=== PATIENT | female | born 1990 | race African-American/Black ===

== ENCOUNTER 2016-07-04 17:39 | Emergency (ER) | payer OTHER ==
[~2016-07-04 17:39] MED LIST: IBUP80TA PO; PERCOCET PO
[2016-07-04] MEDS ORDERED: TETRACAINE 0.5% OPHTH SOLN 4ML As Ordered ONE (18:14)
--- NOTE | 2016-07-04 18:54 | EDDOCDS ---
Nurse's Notes [facility] Name: Sanjana Hernadez Age: 26 yrs Sex: Female : 1990 Arrival Date: 07/04/2016 Time: 17:39 Bed I10 / 23 Private MD: NIKOLE Diagnosis: Injury of conjunctiva and corneal abrasion without foreign body, left eye Presentation: 07/04 18:06 Presenting complaint: Patient states: Was playing with kids and noticed that she had an lf1 injury to her left eye. States she rinsed it out but is unable to see out of it and has increased pain. Pain is currently 10/10. Adult Sepsis Screening: The patient does not have new or worsening altered mentation. Patient's respiratory rate is less than 22. Systolic blood pressure is greater than 100. Patient has a qSOFA score of 0- Negative Sepsis Screen. Suicide/Homicide risk assessment- the patient denies having any suicidal and/or homicidal ideations and does not present with any other emotional, behavioral or mental health complaints. Status: Patient is not a nursing surgical services director or dependent. Transition of care: patient was not received from another setting of care. 18:06 Acuity: LISA Level 4 lf1 18:06 Method Of Arrival: Walkin/Carried/Asstd lf1 Triage Assessment: 18:08 General: Appears obese, uncomfortable, Behavior is cooperative. Pain: Location: left lf1 eye Pain currently is 10 out of 10 on a pain scale. HIV screening NA for this visit Offered previously. Neurological: Level of Consciousness is awake, alert. EENT: Reports pain in left eye. Respiratory: Respiratory effort is even, unlabored. GI: Denies nausea, vomiting. Derm: Skin is normal. 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 none - PMHx: Anxiety; Bipolar disorder; Depression; - PSHx: ; Carpal Tunnel Repair- Right; - Social history: Smoking status: Patient states former smoker of tobacco. No barriers to communication noted, The patient speaks fluent Kazakh, Speaks appropriately for age, Preferred Language: Kazakh. - Family history: Not pertinent. - : The pt / caregiver states he / she is not on anticoagulants. Home medication list is obtained from the patient. - Exposure Risk Screening:: None identified. Screenin:51 Screening information is obtained from the patient. Fall risk: No risks identified. srm Assistance ADL's: requires no assistance with activities of daily living. Abuse/DV Screen: The patient / caregiver reports he/she is: not in a situation that causes fear, pain or injury. Nutritional screening: No deficits noted. Advance Directives: Currently, there is no health care proxy. There is no active DNR order. There is no living will. home support is adequate. Assessment: 18:51 General: Appears in no apparent distress, Behavior is appropriate for age, cooperative. srm Neurological: No deficits noted. EENT: Sclera/Cornea are reddened in outer aspect of conjuctiva of left eye, iris of left eye and inner aspect of conjunctiva of left eye. Respiratory: No deficits noted. GI: No deficits noted. Vital Signs: 17:41 BP 132 / 75; Pulse 86; Resp 18 S; Temp 98.6(O); Pulse Ox 100% on R/A; Weight 92.99 kg dd6 (R); Height 5 ft. 5 in. (165.10 cm) (R); 17:41 Body Mass Index 34.11 (92.99 kg, 165.10 cm) dd6 Vitals: 17:41 Log In Time: July 04, 2016 at 17:39. dd6 Visual Acuity: 18:24 Left Eye Visual acuity 20/200, ; Right Eye Visual acuity 20/30, ; Both Eyes Visual srm acuity 20/25; Without Lenses; ED Course: 17:40 Patient visited by Reji Azul PCA. dd6 17:40 NONE is Private Physician. dd6 17:40 Patient moved to Waiting dd6 17:41 Patient moved to Pre RCE dd6 18:08 Triage Initiated lf1 18:10 Bharati Naylor MD is Attending Physician. sd1 18:12 Patient visited by Bharati Naylor MD. sd1 18:12 Patient moved to I10 / 23 kr3 18:20 Giovany Barksdale is Referral Physician. sd1 18:25 Patient visited by Aileen Calzada RN. srm 18:51 The patient / caregiver is instructed regarding the plan of care and ED course. Patient srm has correct armband on for positive identification. 18:51 No IV's were initiated during this patient's visit. No procedures done that require srm assistance. Order Results: There are currently no results for this order. Outcome: 18:20 Discharge ordered by Provider. sd1 18:51 Discharge Assessment: patient administered narcotics - no. The following High Risk srm Discharge criteria are identified: None. Discharged to home ambulatory. Condition: good Condition: stable. No special radiology studies were completed. Property :Personal belongings accompany Pt. 18:53 Patient left the ED. srm Signatures: Bharati Naylor MD MD sd1 Aileen Calzada, RN RN Natalee YenRN RN kr3 Patricia Manley RN RN lf1 Reji Azul, KIMBERLY CALL CENTER RECRUITER dd6 HUEYD
--- NOTE | 2016-07-04 18:54 | EDDOCDS ---
Physician Documentation [facility] Name: Sanjana Hernadez Age: 26 yrs Sex: Female : 1990 Arrival Date: 07/04/2016 Time: 17:39 Bed I10 / 23 Private MD: NONE Disposition: 07/04/16 18:20 Discharged to Home/Self Care. Impression: Injury of conjunctiva and corneal abrasion without foreign body, left eye. - Condition is Stable. - Discharge Instructions: Corneal Abrasion, Corneal Abrasion, [id number]. - Prescriptions for Naprosyn 500 mg Oral Tablet - take 1 tablet by ORAL route 2 times per day take with food; 30 tablet. Percocet 5- 325 mg Oral Tablet - take 1 tablet by ORAL route every 6 hours As needed MDD: 4 tabs; 8 tablet. Erythromycin 5 mg/gram (0.5 %) Ophthalmic Ointment - apply 1 ribbon by OPHTHALMIC route every 8 hours; 1 tube. - Medication Reconciliation, Local Pharmacy Hours form. - Follow up: Giovany Barksdale; When: Call to arrange an appointment. - Problem is new. - Symptoms have improved. Historical: - Allergies: No known drug Allergies; - Home Meds: 1. none - PMHx: Anxiety; Bipolar disorder; Depression; - PSHx: ; Carpal Tunnel Repair- Right; - Social history: Smoking status: Patient states former smoker of tobacco. No barriers to communication noted, The patient speaks fluent Central African, Speaks appropriately for age, Preferred Language: Central African. - Family history: Not pertinent. - : The pt / caregiver states he / she is not on anticoagulants. Home medication list is obtained from the patient. - Exposure Risk Screening:: None identified. 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 5 in. (165.10 cm) (R); 17:41 Body Mass Index 34.11 (92.99 kg, 165.10 cm) dd6 Visual Acuity: 18:24 Left Eye Visual acuity 20/200, ; Right Eye Visual acuity 20/30, ; Both Eyes Visual srm acuity 20/25; Without Lenses; MDM: 18:13 Visual Acuity ordered. sd1 18:51 Financial registration complete. Signatures: Bharati Naylor MD MD sd1 Aileen Calzada, RN RN srm Aga Rivera, Reg Reg Patricia ManleyRN RN lf1 MTDD
--- NOTE | 2016-07-06 19:53 | EDDOCDS ---
Physician Documentation [facility] Name: Sanjana Hernadez Age: 26 yrs Sex: Female : 1990 Arrival Date: 07/04/2016 Time: 17:39 Bed I10 / 23 Private MD: NONE Disposition: 07/04/16 18:20 Discharged to Home/Self Care. Impression: Injury of conjunctiva and corneal abrasion without foreign body, left eye. - Condition is Stable. - Discharge Instructions: Corneal Abrasion, Corneal Abrasion, [id number]. - Prescriptions for Naprosyn 500 mg Oral Tablet - take 1 tablet by ORAL route 2 times per day take with food; 30 tablet. Percocet 5- 325 mg Oral Tablet - take 1 tablet by ORAL route every 6 hours As needed MDD: 4 tabs; 8 tablet. Erythromycin 5 mg/gram (0.5 %) Ophthalmic Ointment - apply 1 ribbon by OPHTHALMIC route every 8 hours; 1 tube. - Medication Reconciliation, Local Pharmacy Hours form. - Follow up: Giovany Barksdale; When: Call to arrange an appointment. - Problem is new. - Symptoms have improved. Historical: - Allergies: No known drug Allergies; - Home Meds: 1. none - PMHx: Anxiety; Bipolar disorder; Depression; - PSHx: ; Carpal Tunnel Repair- Right; - Social history: Smoking status: Patient states former smoker of tobacco. No barriers to communication noted, The patient speaks fluent Estonian, Speaks appropriately for age, Preferred Language: Estonian. - Family history: Not pertinent. - : The pt / caregiver states he / she is not on anticoagulants. Home medication list is obtained from the patient. - Exposure Risk Screening:: None identified. 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 5 in. (165.10 cm) (R); 17:41 Body Mass Index 34.11 (92.99 kg, 165.10 cm) dd6 Visual Acuity: 18:24 Left Eye Visual acuity 20/200, ; Right Eye Visual acuity 20/30, ; Both Eyes Visual srm acuity 20/25; Without Lenses; MDM: 18:13 Visual Acuity ordered. sd1 18:51 Financial registration complete. gb 18:59 [facility] Payment Agreement was scanned into [employer] and attached to record. zo 07/05 09:20 T-Sheet-- Draft Copy was scanned into [employer] and attached to record. gb Signatures: Bharati Naylor MD MD sd1 Aileen Calzada, RN RN [facility] Aga Rivera, Reg Reg gb Dangelo Lieberman Lisa,RN RN lf1 The chart was reviewed and I authenticate all verbal orders and agree with the evaluation and treatment provided.Attachments: 07/04 18:59 [facility] Payment Agreement zo 07/05 09:20 T-Sheet-- Draft Copy gb Chart Complete MTDD
--- NOTE | 2016-07-06 19:53 | EDDOCDS ---
Physician Documentation [facility] Name: Sanjana Hernadez Age: 26 yrs Sex: Female : 1990 Arrival Date: 07/04/2016 Time: 17:39 Bed I10 / 23 Private MD: NONE Disposition: 07/04/16 18:20 Discharged to Home/Self Care. Impression: Injury of conjunctiva and corneal abrasion without foreign body, left eye. - Condition is Stable. - Discharge Instructions: Corneal Abrasion, Corneal Abrasion, [id number]. - Prescriptions for Naprosyn 500 mg Oral Tablet - take 1 tablet by ORAL route 2 times per day take with food; 30 tablet. Percocet 5- 325 mg Oral Tablet - take 1 tablet by ORAL route every 6 hours As needed MDD: 4 tabs; 8 tablet. Erythromycin 5 mg/gram (0.5 %) Ophthalmic Ointment - apply 1 ribbon by OPHTHALMIC route every 8 hours; 1 tube. - Medication Reconciliation, Local Pharmacy Hours form. - Follow up: Giovany Barksdale; When: Call to arrange an appointment. - Problem is new. - Symptoms have improved. Historical: - Allergies: No known drug Allergies; - Home Meds: 1. none - PMHx: Anxiety; Bipolar disorder; Depression; - PSHx: ; Carpal Tunnel Repair- Right; - Social history: Smoking status: Patient states former smoker of tobacco. No barriers to communication noted, The patient speaks fluent North Korean, Speaks appropriately for age, Preferred Language: North Korean. - Family history: Not pertinent. - : The pt / caregiver states he / she is not on anticoagulants. Home medication list is obtained from the patient. - Exposure Risk Screening:: None identified. 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 5 in. (165.10 cm) (R); 17:41 Body Mass Index 34.11 (92.99 kg, 165.10 cm) dd6 Visual Acuity: 18:24 Left Eye Visual acuity 20/200, ; Right Eye Visual acuity 20/30, ; Both Eyes Visual srm acuity 20/25; Without Lenses; MDM: 18:13 Visual Acuity ordered. sd1 18:51 Financial registration complete. gb 18:59 [facility] Payment Agreement was scanned into [employer] and attached to record. zo 07/05 09:20 T-Sheet-- Draft Copy was scanned into [employer] and attached to record. gb Signatures: Bharati Naylor MD MD sd1 Aileen Calzada, RN RN [facility] Aga Rivera, Reg Reg gb Dangelo Lieberman Lisa,RN RN lf1 The chart was reviewed and I authenticate all verbal orders and agree with the evaluation and treatment provided.Attachments: 07/04 18:59 [facility] Payment Agreement zo 07/05 09:20 T-Sheet-- Draft Copy gb Chart Complete MTDD
--- NOTE | 2016-07-06 19:53 | EDDOCDS ---
Nurse's Notes [facility] Name: Sanjana Hernadez Age: 26 yrs Sex: Female : 1990 Arrival Date: 07/04/2016 Time: 17:39 Bed I10 / 23 Private MD: NIKOLE Diagnosis: Injury of conjunctiva and corneal abrasion without foreign body, left eye Presentation: 07/04 18:06 Presenting complaint: Patient states: Was playing with kids and noticed that she had an lf1 injury to her left eye. States she rinsed it out but is unable to see out of it and has increased pain. Pain is currently 10/10. Adult Sepsis Screening: The patient does not have new or worsening altered mentation. Patient's respiratory rate is less than 22. Systolic blood pressure is greater than 100. Patient has a qSOFA score of 0- Negative Sepsis Screen. Suicide/Homicide risk assessment- the patient denies having any suicidal and/or homicidal ideations and does not present with any other emotional, behavioral or mental health complaints. 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 Transition of care: patient was not received from another setting of care. 18:06 Acuity: LISA Level 4 lf1 18:06 Method Of Arrival: Walkin/Carried/Asstd lf1 Triage Assessment: 18:08 General: Appears obese, uncomfortable, Behavior is cooperative. Pain: Location: left lf1 eye Pain currently is 10 out of 10 on a pain scale. HIV screening NA for this visit Offered previously. Neurological: Level of Consciousness is awake, alert. EENT: Reports pain in left eye. Respiratory: Respiratory effort is even, unlabored. GI: Denies nausea, vomiting. Derm: Skin is normal. 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 none - PMHx: Anxiety; Bipolar disorder; Depression; - PSHx: ; Carpal Tunnel Repair- Right; - Social history: Smoking status: Patient states former smoker of tobacco. No barriers to communication noted, The patient speaks fluent Chilean, Speaks appropriately for age, Preferred Language: Chilean. - Family history: Not pertinent. - : The pt / caregiver states he / she is not on anticoagulants. Home medication list is obtained from the patient. - Exposure Risk Screening:: None identified. Screenin:51 Screening information is obtained from the patient. Fall risk: No risks identified. srm Assistance ADL's: requires no assistance with activities of daily living. Abuse/DV Screen: The patient / caregiver reports he/she is: not in a situation that causes fear, pain or injury. Nutritional screening: No deficits noted. Advance Directives: Currently, there is no health care proxy. There is no active DNR order. There is no living will. home support is adequate. Assessment: 18:51 General: Appears in no apparent distress, Behavior is appropriate for age, cooperative. srm Neurological: No deficits noted. EENT: Sclera/Cornea are reddened in outer aspect of conjuctiva of left eye, iris of left eye and inner aspect of conjunctiva of left eye. Respiratory: No deficits noted. GI: No deficits noted. Vital Signs: 17:41 BP 132 / 75; Pulse 86; Resp 18 S; Temp 98.6(O); Pulse Ox 100% on R/A; Weight 92.99 kg dd6 (R); Height 5 ft. 5 in. (165.10 cm) (R); 17:41 Body Mass Index 34.11 (92.99 kg, 165.10 cm) dd6 Vitals: 17:41 Log In Time: July 04, 2016 at 17:39. dd6 Visual Acuity: 18:24 Left Eye Visual acuity 20/200, ; Right Eye Visual acuity 20/30, ; Both Eyes Visual srm acuity 20/25; Without Lenses; ED Course: 17:40 Patient visited by Reji Azul PCA. dd6 17:40 NONE is Private Physician. dd6 17:40 Patient moved to Waiting dd6 17:41 Patient moved to Pre RCE dd6 18:08 Triage Initiated lf1 18:10 Bharati Naylor MD is Attending Physician. sd1 18:12 Patient visited by Bharati Naylor MD. sd1 18:12 Patient moved to I10 / 23 kr3 18:20 Giovany Barksdale is Referral Physician. sd1 18:25 Patient visited by Aileen Calzada RN. srm 18:51 The patient / caregiver is instructed regarding the plan of care and ED course. Patient srm has correct armband on for positive identification. 18:51 No IV's were initiated during this patient's visit. No procedures done that require srm assistance. 18:59 [facility] Payment Agreement was scanned into [employer] and attached to record. zo 07/05 09:20 T-Sheet-- Draft Copy was scanned into [employer] and attached to record. gb Order Results: There are currently no results for this order. Outcome: 07/04 18:20 Discharge ordered by Provider. sd1 18:51 Discharge Assessment: patient administered narcotics - no. The following High Risk srm Discharge criteria are identified: None. Discharged to home ambulatory. Condition: good Condition: stable. No special radiology studies were completed. Property :Personal belongings accompany Pt. 18:53 Patient left the ED. srm Signatures: Bharati Naylor MD MD sd1 Aileen Calzada, RN RN srm Aga Rivera, Reg Reg Natalee Benavides,RN RN kr3 Dangelo Lieberman Lisa, RN RN lf1 Reji Azul, KIMBERLY WAX PATTERN COATER dd6 Chart Complete ALISSA
== END 2016-07-04 18:53 | disposition home or self-care (01) ==
LOC: M ED 17:39
DX: S05.02XA Injury of conjunctiva and corneal abrasion without foreign body, left eye, initial encounter (principal); W50.0XXA Accidental hit or strike by another person, initial encounter; Y92.099 Unspecified place in other non-institutional residence as the place of occurrence of the external cause; Y93.89 Activity, other specified; Y99.8 Other external cause status; F41.9 Anxiety disorder, unspecified; F31.9 Bipolar disorder, unspecified; Z87.891 Personal history of nicotine dependence

== ENCOUNTER → 2016-07-12 | Outpatient (REF) | payer OTHER | END | disposition home or self-care (01) | LOC: M LAB REF 13:16 | PROVIDERS: ATTEND Nurse Practitioner Family | DX: R33.9 Retention of urine, unspecified (principal) ==

== ENCOUNTER 2016-08-25 11:50 | Emergency (ER) | payer OTHER ==
[~2016-08-25] VITALS: Ht 165.1 cm; Wt 89.8 kg
--- NOTE | 2016-08-25 13:37 | REP ---
RIGHT HAND SERIES, COMPLETE: 08/25/2016 CLINICAL HISTORY: Trauma. No prior study. FINDINGS: Four views are provided. Distal radius and ulna intact. Carpal bones and their joint spaces are preserved. There is no fracture, subluxation or focal lesion. The metacarpals and phalanges are unremarkable. I see no radiopaque foreign body. No erosion or avulsion. IMPRESSION: There is no fracture, avulsion, subluxation or focal bone lesion about the hand. No radiopaque foreign body. Signed by Tommy Oconnor MD 08/25/2016 05:07 P
[2016-08-25] MEDS ORDERED: IBUP600T26 PO (14:56)
[2016-08-25 15:09] VITALS: BP 145/75
== END 2016-08-25 15:12 | disposition home or self-care (01) ==
LOC: M ED 13:23
DX: S60.221A Contusion of right hand, initial encounter (principal); X58.XXXA Exposure to other specified factors, initial encounter; Y92.099 Unspecified place in other non-institutional residence as the place of occurrence of the external cause; Y93.89 Activity, other specified; Y99.9 Unspecified external cause status

== ENCOUNTER 2018-01-21 11:05 | Emergency (ER) | payer MEDICAID, BC, OTHER | END 2018-01-21 11:40 | disposition home or self-care (01) | LOC: M ED 11:05 | DX: L30.9 Dermatitis, unspecified (principal); Z91.040 Latex allergy status | CPT/HCPCS: 99282 ==

== ENCOUNTER 2018-04-20 21:48 | Emergency (ER) | payer OTHER, MEDICAID ==
[2018-04-20] MEDS: IBUPROFEN 800 MG TAB PO (22:22)
[2018-04-20] MEDS: BACTRIM 160MG/800MG DS TAB PO (22:22)
== END 2018-04-20 22:45 | disposition home or self-care (01) ==
LOC: M ED 21:48
DX: L02.412 Cutaneous abscess of left axilla (principal); L02.411 Cutaneous abscess of right axilla
CPT/HCPCS: 87186

== ENCOUNTER 2018-04-22 17:16 | Emergency (ER) | payer OTHER ==
[2018-04-22] MEDS: BACTRIM 160MG/800MG DS TAB PO (19:19)
== END 2018-04-22 19:28 | disposition home or self-care (01) ==
LOC: M ED 17:16
DX: L02.413 Cutaneous abscess of right upper limb (principal); Z72.0 Tobacco use; Z79.899 Other long term (current) drug therapy; Z91.040 Latex allergy status
CPT/HCPCS: 99283

== ENCOUNTER → 2018-06-05 | Outpatient (CLI) | payer MEDICAID ==
[~2018-06-05] MED LIST changes: +BACT800T5 PO; +CLAR1TAB2 PO; +HYDR-3363; +IBUP-1022 PO; +TRAZ-160; +TRIA1CR80 TOP
== END ==
LOC: M OUTALCOH 08:36
PROVIDERS: ATTEND Psychiatry & Neurology Psychiatry
DX: Z13.89 Encounter for screening for other disorder (principal); F12.20 Cannabis dependence, uncomplicated

== ENCOUNTER 2018-06-09 08:15 | Emergency (ER) | payer MEDICAID, OTHER ==
[~2018-06-09] VITALS: Ht 165.1 cm; Wt 85.9 kg
[2018-06-09] MEDS ORDERED: KETOROLAC 60 MG/2 ML VIAL (J1885) IM ONE (09:00)
[2018-06-09 09:25] VITALS: BP 133/90
--- NOTE | 2018-06-09 17:27 | ECGEPIP ---
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
== END 2018-06-09 09:29 | disposition home or self-care (01) ==
LOC: M ED 08:15
DX: M94.0 Chondrocostal junction syndrome [Tietze] (principal); F12.10 Cannabis abuse, uncomplicated; F32.9 Major depressive disorder, single episode, unspecified; F17.200 Nicotine dependence, unspecified, uncomplicated; Z91.040 Latex allergy status; Z79.899 Other long term (current) drug therapy
CPT/HCPCS: 93005; 96372; 99284; J1885

== ENCOUNTER 2018-07-09 16:00 | Outpatient (RCR) | payer MEDICAID | END 2018-07-11 | LOC: M OUTALCOH 16:00 | PROVIDERS: ATTEND Psychiatry & Neurology Psychiatry | DX: F12.20 Cannabis dependence, uncomplicated (principal); Z72.0 Tobacco use ==

== ENCOUNTER → 2018-07-15 | Outpatient (REF) | payer OTHER ==
[2018-07-15 16:26] LABS: HEMATOCRIT 36.6 % (36.0-47.0); HEMOGLOBIN 11.6 g/dl (12.0-15.5); MEAN CORPUSCULAR HEMOGLOBIN 30.1 pg (27.0-33.0); MEAN CORPUSCULAR HGB CONC 31.7 g/dl (32.0-36.5); MEAN CORPUSCULAR VOLUME 94.8 fl (80.0-96.0); PLATELET COUNT, AUTOMATED 421 10^3/uL (150-450); RED BLOOD COUNT 3.86 10^6/uL (4.00-5.40); WHITE BLOOD COUNT 9.1 10^3/uL (4.0-10.0)
[2018-07-15 16:59] LABS: ALBUMIN 3.4 GM/DL (3.2-5.2); ALT/SGPT 24 U/L (12-78); BILIRUBIN,TOTAL 0.2 MG/DL (0.2-1.0); BLOOD UREA NITROGEN 11 MG/DL (7-18); CALCIUM LEVEL 8.5 MG/DL (8.5-10.1); CARBON DIOXIDE LEVEL 31 MEQ/L (21-32); CHLORIDE LEVEL 104 MEQ/L (98-107); CREATININE FOR GFR 0.62 MG/DL (0.55-1.30); GLOMERULAR FILTRATION RATE > 60.0 (>60); GLUCOSE, FASTING 80 MG/DL (70-100); POTASSIUM SERUM 4.3 MEQ/L (3.5-5.1); SODIUM LEVEL 142 MEQ/L (136-145); TOTAL PROTEIN 7.1 GM/DL (6.4-8.2)
== END ==
LOC: M SFHCPLAZ 14:28
PROVIDERS: ATTEND Family Medicine
DX: F31.81 Bipolar II disorder (principal)

== ENCOUNTER 2018-08-06 16:00 | Outpatient (RCR) | payer MEDICAID | END 2018-08-08 | LOC: M OUTALCOH 16:00 | PROVIDERS: ATTEND Psychiatry & Neurology Psychiatry | DX: F12.20 Cannabis dependence, uncomplicated (principal); Z72.0 Tobacco use ==

== ENCOUNTER 2018-08-30 14:00 | Outpatient (RCR) | payer MEDICAID | END 2018-09-08 | LOC: M OUTALCOH 14:00 | PROVIDERS: ATTEND Psychiatry & Neurology Psychiatry | DX: F12.20 Cannabis dependence, uncomplicated (principal); Z72.0 Tobacco use ==

== ENCOUNTER → 2018-11-01 | Outpatient (CLI) | payer OTHER ==
[~2018-11-01] MED LIST changes: +OXYC1TAB23 PO; -PERCOCET PO
--- NOTE | 2018-11-01 09:15 | REP ---
Clinical: Right upper quadrant pain. Technique: Real time romero scale ultrasound examination using curved array transducer. Findings: Liver and visualized pancreas are normal in contour, size, and echogenicity without focal hepatic or pancreatic lesions identified. Pancreas is incompletely evaluated due to interposed bowel gas. The gallbladder is normal and without gallstones, wall thickening, or pericholecystic fluid. No biliary ductal dilatation appreciated and the common bile duct measures 4.0 mm diameter. The right kidney is normal in reniform shape and measures 12.5 x 4.6 x 4.6 cm. No ascites in the visualized right upper quadrant. Impression: Normal right upper quadrant ultrasound examination. Electronically Signed by Rod Matson MD 11/01/2018 09:07 A
== END ==
LOC: M RAD 07:31
PROVIDERS: ATTEND Family Medicine
DX: R10.11 Right upper quadrant pain (principal)

== ENCOUNTER → 2019-01-24 | Outpatient (CLI) | payer MEDICAID ==
[~2019-01-24] MED LIST changes: -TRAZ-160; +TRAZ-252
== END ==
LOC: M OUTALCOH 09:34
PROVIDERS: ATTEND Psychiatry & Neurology Psychiatry
DX: F12.20 Cannabis dependence, uncomplicated (principal); F10.20 Alcohol dependence, uncomplicated

== ENCOUNTER 2019-07-02 15:56 | Outpatient (RCR) | payer MEDICAID, SELFPAY | END 2019-07-11 | LOC: M OUTALCOH 15:56 | PROVIDERS: ATTEND Psychiatry & Neurology Addiction Medicine | DX: F12.20 Cannabis dependence, uncomplicated (principal); F10.20 Alcohol dependence, uncomplicated; Z72.0 Tobacco use ==

== ENCOUNTER 2019-07-17 03:28 | Emergency (ER) | payer MEDICAID, OTHER ==
[~2019-07-17] VITALS: Ht 162.6 cm; Wt 90.0 kg
[2019-07-17] MEDS ORDERED: AMOX875T (03:38)
[2019-07-17] MEDS ORDERED: EFFE150C2 (03:38)
[2019-07-17] MEDS ORDERED: LATU20TA PO (03:38)
[2019-07-17 04:36] LABS: INFLUENZA A AMPLIFICATION NEGATIVE (NEGATIVE); INFLUENZA B AMPLIFICATION POSITIVE (NEGATIVE)
[2019-07-17 04:52] VITALS: BP 122/68
[2019-07-17] MEDS ORDERED: BENZ200C70 PO (06:26)
--- NOTE | 2019-07-17 13:22 | REP ---
Clinical: Cough and fever . Comparison: 08/09/2011 . Technique: PA and lateral. Findings: The mediastinum and cardiac silhouette are normal. The lung bray are clear and without acute consolidation, effusion, or pneumothorax. The skeletal structures are intact and normal. Impression: 1. No acute cardiopulmonary process. Electronically Signed by Rod Matson MD 07/17/2019 01:14 P
== END 2019-07-17 06:36 | disposition home or self-care (01) ==
LOC: M ED 03:28
DX: J10.89 Influenza due to other identified influenza virus with other manifestations (principal); F33.9 Major depressive disorder, recurrent, unspecified; Z79.899 Other long term (current) drug therapy; Z91.040 Latex allergy status; F17.210 Nicotine dependence, cigarettes, uncomplicated

== ENCOUNTER → 2019-09-24 | Outpatient (CLI) | payer OTHER ==
[~2019-09-24] MED LIST changes: +AMOX875T; +BENZ200C70 PO; +EFFE150C2; +LATU20TA PO
--- NOTE | 2019-09-25 03:20 | REP ---
Clinical: Right knee pain Technique: AP, lateral, bilateral oblique and sunrise views. Findings: Examination is relatively age-appropriate. The tibiofemoral joint space appears normal. Griffith view suggests increase sclerosis along the posterior patellar margin with minimal decreased lateral patellofemoral joint space. No acute fracture dislocation. No obvious effusion. Impression: Mild degenerative changes involving the patellofemoral joint space cannot be excluded. Electronically Signed by Rod Matson MD 09/25/2019 03:12 A
== END ==
LOC: M WUC 11:16
PROVIDERS: ATTEND Physician Assistant
DX: M25.561 Pain in right knee (principal)

== ENCOUNTER → 2022-10-02 | Outpatient (CLI) | payer OTHER ==
[2022-10-02 11:28] LABS: BASO % 0.3 % (0.0-1.0); EOS # 0.1 10^3/uL (0.0-0.5); EOS % 0.6 % (0.0-3.0); HEMATOCRIT 37.8 % (36.0-47.0); LYMPH # 2.3 10^3/uL (1.5-5.0); LYMPH % 28.9 % (24.0-44.0); MEAN CORPUSCULAR HEMOGLOBIN 30.3 pg (27.0-33.0); MEAN CORPUSCULAR HGB CONC 31.7 g/dl (32.0-36.5); MEAN CORPUSCULAR VOLUME 95.5 fl (80.0-96.0); MONO # 0.4 10^3/uL (0.0-0.8); MONO % 5.2 % (2.0-8.0); NEUTROPHILS # 5.1 10^3/uL (1.5-8.5); NEUTROPHILS % 64.9 % (36.0-66.0); PLATELET COUNT, AUTOMATED 384 10^3/uL (150-450); RED BLOOD COUNT 3.96 10^6/uL (4.00-5.40); WHITE BLOOD COUNT 7.9 10^3/uL (4.0-10.0)
[2022-10-02 11:46] LABS: THYROID STIMULATING HORMONE 1.013 uIU/ML (0.55-4.78); TOTAL 25(OH) VITAMIN D 14.3 NG/ML (20.0-100.0)
[2022-10-02 11:49] LABS: ALBUMIN 3.5 G/DL (3.2-5.2); ALKALINE PHOSPHATASE 99 U/L (46-116); ALT/SGPT 14 U/L (7.0-40); AST/SGOT 12 U/L (<34); BILIRUBIN,TOTAL 0.5 MG/DL (0.3-1.2); BLOOD UREA NITROGEN 6 MG/DL (9-23); CALCIUM LEVEL 8.7 MG/DL (8.5-10.1); CARBON DIOXIDE LEVEL 29 MMOL/L (20-31); CHLORIDE LEVEL 107 MMOL/L (98-107); CHOLESTEROL LEVEL 160 MG/DL (<200); CHOLESTEROL RISK RATIO 2.96 (<5); CREATININE FOR GFR 0.59 MG/DL (0.55-1.30); FREE T4 0.87 NG/DL (0.89-1.76); GLOMERULAR FILTRATION RATE > 60.0 (>60); GLUCOSE, FASTING 86 MG/DL (60-100); HDL CHOLESTEROL 53.9 MG/DL (>40); LDL CHOLESTEROL 91.3 MG/DL (<100); NON-HDL-C 106.1 MG/DL; SODIUM LEVEL 141 MMOL/L (136-145); TOTAL PROTEIN 6.6 G/DL (5.7-8.2); TRIGLYCERIDES LEVEL 74 MG/DL (<150)
== END ==
LOC: M RAD 10:11
PROVIDERS: ATTEND Physician Assistant
DX: M54.41 Lumbago with sciatica, right side (principal); G89.29 Other chronic pain; Z13.6 Encounter for screening for cardiovascular disorders

== ENCOUNTER → 2022-10-24 | Outpatient (CLI) | payer OTHER | LOC: M WUC 11:51 | PROVIDERS: ATTEND Nurse Practitioner Family | DX: M79.641 Pain in right hand (principal) ==

== ENCOUNTER → 2023-04-03 | Outpatient (CLI) | payer MEDICAID | LOC: M WHC 08:15 | PROVIDERS: ATTEND Physician Assistant | DX: Z80.3 Family history of malignant neoplasm of breast (principal); N64.4 Mastodynia; N63.21 Unspecified lump in the left breast, upper outer quadrant ==

== ENCOUNTER 2023-07-05 12:04 | Inpatient (IN) | payer MEDICAID ==
[~2023-07-05] VITALS: Ht 165.1 cm; Wt 93.9 kg
[~2023-07-05 12:04] MED LIST changes: -EFFE150C2; +EFFE150C3
[2023-07-05] MEDS ORDERED: DULO1CAP6 PO (12:18)
[2023-07-05] MEDS ORDERED: GABA-282 PO (12:18)
[2023-07-05] MEDS ORDERED: CYCL5TAB PO (12:18)
[2023-07-05] MEDS ORDERED: MELO15TA28 PO (12:18)
[2023-07-05 12:33] LABS: HEMOGLOBIN 12.4 g/dl (12.0-15.5); MEAN CORPUSCULAR HGB CONC 33.5 g/dl (32.0-36.5); MEAN CORPUSCULAR VOLUME 92.5 fl (80.0-96.0); PLATELET COUNT, AUTOMATED 390 10^3/uL (150-450); WHITE BLOOD COUNT 11.4 10^3/uL (4.0-10.0)
[2023-07-05 12:59] LABS: HCG, SERUM QUALITATIVE NEGATIVE (NEGATIVE)
[2023-07-05 13:05] LABS: ETHYL ALCOHOL (ETHANOL) < 0.003 % (0.000-0.010)
[2023-07-05 13:07] LABS: ALBUMIN 3.6 G/DL (3.2-5.2); ALKALINE PHOSPHATASE 94 U/L (46-116); ALT/SGPT 15 U/L (7.0-40); AST/SGOT < 8 U/L (<34); BILIRUBIN,DIRECT 0.2 MG/DL (<0.4); BILIRUBIN,TOTAL 0.5 MG/DL (0.3-1.2); BLOOD UREA NITROGEN 7 MG/DL (9-23); CALCIUM LEVEL 8.2 MG/DL (8.5-10.1); CARBON DIOXIDE LEVEL 25 MMOL/L (20-31); CHLORIDE LEVEL 109 MMOL/L (98-107); CREATININE FOR GFR 0.58 MG/DL (0.55-1.30); GLOMERULAR FILTRATION RATE > 60.0 (>60); GLUCOSE, FASTING 90 MG/DL (60-100); POTASSIUM SERUM 3.6 MMOL/L (3.5-5.1); SALICYLATE LEVEL < 3.0 MG/DL (<30); SODIUM LEVEL 140 MMOL/L (136-145)
[2023-07-05 13:09] LABS: THYROID STIMULATING HORMONE 1.236 uIU/ML (0.55-4.78)
[2023-07-05] MEDS ORDERED: MED REC IN PROGRESS XX SCH (13:30)
[2023-07-05 13:52] LABS: AMPHETAMINES LEVEL URINE NEGATIVE (NEGATIVE)
[2023-07-05 13:53] LABS: BARBITURATES URINE NEGATIVE (NEGATIVE); BENZODIAZEPINES URINE NEGATIVE (NEGATIVE); COCAINE METABOLITE URINE NEGATIVE (NEGATIVE); METHADONE URINE NEGATIVE (NEGATIVE); OPIATES URINE NEGATIVE (NEGATIVE); PHENCYCLIDINE URINE NEGATIVE (NEGATIVE)
[2023-07-05 13:54] LABS: CANNABINOIDS URINE POSITIVE (NEGATIVE)
[2023-07-05] MEDS ORDERED: CETI-24 PO (14:46)
[2023-07-05] MEDS ORDERED: GABA-1171 PO (14:46)
[2023-07-05] MEDS ORDERED: ERGO500029 PO (14:46)
[2023-07-05] MEDS ORDERED: DICL50TAB PO (14:46)
[2023-07-05] MEDS ORDERED: HOME MED LIST COMPLETE! XX SCH (15:50)
[2023-07-05] MEDS: GABAPENTIN 100 MG CAP PO SCH ×2 (16:46→22:04)
[2023-07-06] MEDS: CETIRIZINE (ZyrTEC) 10 MG TAB PO SCH (07:48)
[2023-07-06] MEDS: MELOXICAM (MOBIC) 7.5 MG TAB PO SCH (07:48)
[2023-07-06] MEDS: GABAPENTIN 100 MG CAP PO SCH ×3 (07:48→20:41)
[2023-07-06] MEDS ORDERED: MAALOX 30 ML SUSP *UDC PO PRN (15:25)
[2023-07-06] MEDS ORDERED: MOM 30ML SUSPENSION UDC PO PRN (15:25)
[2023-07-06] MEDS ORDERED: ACETAMINOPHEN TAB 650MG DOSE (2X325MG) PO PRN (15:25)
[2023-07-06 17:35] VITALS: BP 142/89; TEMP 97.8; O2SAT 100
[2023-07-07] MEDS: traZODone 50 MG TAB PO PRN ×2 (00:17→20:52)
[2023-07-07 06:11] VITALS: BP 143/78; TEMP 97.6
[2023-07-07 06:22] VITALS: BP 143/78; TEMP 97.6
[2023-07-07] MEDS: GABAPENTIN 100 MG CAP PO SCH ×3 (08:25→20:52)
[2023-07-07] MEDS: CETIRIZINE (ZyrTEC) 10 MG TAB PO SCH (08:25)
[2023-07-07] MEDS: MELOXICAM (MOBIC) 7.5 MG TAB PO SCH (08:25)
[2023-07-07] MEDS: DULoxetine 30MG CAPSULE (CYMBALTA) PO SCH (13:02)
[2023-07-07] MEDS: ARIPiprazole 2 MG TAB PO SCH (13:02)
[2023-07-07] MEDS: IBUPROFEN 400MG TAB PO PRN (13:03)
[2023-07-07 16:21] VITALS: BP 143/89; TEMP 98.5; O2SAT 99
[2023-07-07] MEDS: diphenhydrAMINE 25MG CAP PO PRN (20:52)
[2023-07-08 06:17] VITALS: BP 145/83; TEMP 98.6; O2SAT 100
[2023-07-08] MEDS: GABAPENTIN 100 MG CAP PO SCH ×3 (08:43→20:39)
[2023-07-08] MEDS: ARIPiprazole 2 MG TAB PO SCH (08:43)
[2023-07-08] MEDS: CETIRIZINE (ZyrTEC) 10 MG TAB PO SCH (08:43)
[2023-07-08] MEDS: MELOXICAM (MOBIC) 7.5 MG TAB PO SCH (08:43)
[2023-07-08] MEDS: DULoxetine 30MG CAPSULE (CYMBALTA) PO SCH (08:43)
[2023-07-08] MEDS ORDERED: ONDANSETRON 4MG ORAL DISINTEGRATING TAB PO PRN (11:30)
[2023-07-08 15:58] VITALS: BP 144/89; TEMP 98.4; O2SAT 100
[2023-07-08] MEDS ORDERED: LORazepam 0.5 MG TAB PO ONE (16:10)
[2023-07-08] MEDS: traZODone 50 MG TAB PO PRN (20:39)
[2023-07-08] MEDS: diphenhydrAMINE 25MG CAP PO PRN (20:39)
[2023-07-09 06:19] VITALS: BP 148/78; TEMP 99.1; O2SAT 98
[2023-07-09] MEDS: GABAPENTIN 100 MG CAP PO SCH ×3 (08:59→20:36)
[2023-07-09] MEDS: CETIRIZINE (ZyrTEC) 10 MG TAB PO SCH (08:59)
[2023-07-09] MEDS: DULoxetine 30MG CAPSULE (CYMBALTA) PO SCH (08:59)
[2023-07-09] MEDS: MELOXICAM (MOBIC) 7.5 MG TAB PO SCH (08:59)
[2023-07-09] MEDS: ARIPiprazole 2 MG TAB PO SCH (08:59)
[2023-07-09] MEDS: LIDOCAINE 5% (LIDODERM) PATCH TD SCH ×2 (09:00→11:49)
[2023-07-09] MEDS: PROPRANOLOL 20 MG TAB PO SCH ×2 (10:36→20:37)
[2023-07-09] MEDS: IBUPROFEN 400MG TAB PO PRN (17:05)
[2023-07-09 17:19] VITALS: BP 150/84; TEMP 97.3
[2023-07-09 22:30] VITALS: BP 168/112
[2023-07-09] MEDS: traZODone 50 MG TAB PO PRN (22:35)
[2023-07-10] MEDS ORDERED: amLODIPine 5 MG TAB PO ONE (00:20)
[2023-07-10 01:13] VITALS: BP 168/92
[2023-07-10 08:42] VITALS: BP 136/84
[2023-07-10] MEDS: CETIRIZINE (ZyrTEC) 10 MG TAB PO SCH (08:47)
[2023-07-10] MEDS: GABAPENTIN 100 MG CAP PO SCH (08:47)
[2023-07-10 08:48] VITALS: BP 136/84
[2023-07-10] MEDS: ARIPiprazole 2 MG TAB PO SCH (08:48)
[2023-07-10] MEDS: MELOXICAM (MOBIC) 7.5 MG TAB PO SCH (08:48)
[2023-07-10] MEDS: PROPRANOLOL 20 MG TAB PO SCH (08:48)
[2023-07-10] MEDS: LIDOCAINE 5% (LIDODERM) PATCH TD SCH (08:59)
[2023-07-10] MEDS ORDERED: DULoxetine 30MG CAPSULE (CYMBALTA) PO SCH ×2 (09:00)
[2023-07-10 09:40] LABS: CHOLESTEROL RISK RATIO 3.28 (<5); HDL CHOLESTEROL 53.5 MG/DL (>40); LDL CHOLESTEROL 108.3 MG/DL (<100); NON-HDL-C 122.5 MG/DL
[2023-07-10] MEDS ORDERED: NORV5TAB PO (10:24)
[2023-07-10] MEDS ORDERED: SELF1KIT MC (10:26)
[2023-07-10] MEDS ORDERED: PROP20TA PO (10:26)
[2023-07-10] MEDS ORDERED: TRAZ-252 PO (10:39)
[2023-07-10] MEDS ORDERED: CYMB1CAP5 PO (10:39)
[2023-07-10] MEDS ORDERED: ABIL1TAB13 PO (10:39)
[2023-07-10] MEDS: IBUPROFEN 400MG TAB PO PRN (12:36)
== END 2023-07-10 13:08 | disposition home or self-care (01) | DRG 751 ==
LOC: EEVIPCON 12:04 → EDBD 12:04 → M ED 12:04 → M ED INP 07-06 15:21 → M PSY 07-06 17:36
PROVIDERS: ADMIT Student in an Organized Health Care Education/Training Program; ATTEND Student in an Organized Health Care Education/Training Program
DX: F33.2 Major depressive disorder, recurrent severe without psychotic features (principal); F43.10 Post-traumatic stress disorder, unspecified; R45.851 Suicidal ideations; G89.29 Other chronic pain; M54.9 Dorsalgia, unspecified; H40.9 Unspecified glaucoma; E66.9 Obesity, unspecified; G47.00 Insomnia, unspecified; I10 Essential (primary) hypertension; Z81.1 Family history of alcohol abuse and dependence; F41.9 Anxiety disorder, unspecified; Z62.811 Personal history of psychological abuse in childhood; Z91.411 Personal history of adult psychological abuse; Z91.414 Personal history of adult intimate partner abuse; Z56.0 Unemployment, unspecified; Z63.8 Other specified problems related to primary support group; Z68.34 Body mass index [BMI] 34.0-34.9, adult

== ENCOUNTER → 2025-04-07 | Outpatient (REF) | payer OTHER ==
[~2025-04-07] MED LIST changes: +ABIL1TAB13 PO; +CETI-24 PO; +CYCL5TAB4 PO; +CYMB1CAP5 PO; +DICL50TAB PO; +DULO1CAP6 PO; +ERGO500029 PO; +GABA-1171 PO; +GABA-1172 PO; -IBUP-1022 PO; +IBUP600T42 PO; +MELO15TA28 PO; +NORV5TAB PO; +PROP20TA PO; +PROP40TA62 PO; +SELF1KIT MC; +TRAZ-252 PO
[2025-04-07 16:20] LABS: CALCIUM LEVEL 9.1 MG/DL (8.5-10.1); CARBON DIOXIDE LEVEL 28 MMOL/L (20-31); CHLORIDE LEVEL 109 MMOL/L (98-107); CHOLESTEROL LEVEL 187 MG/DL (<200); CHOLESTEROL RISK RATIO 3.41 (<5); CREATININE FOR GFR 0.59 MG/DL (0.55-1.30); GLOMERULAR FILTRATION RATE > 90.0 (>60); LDL CHOLESTEROL 117.0 MG/DL (<100); NON-HDL-C 132.2 MG/DL; POTASSIUM SERUM 4.1 MMOL/L (3.5-5.1); SODIUM LEVEL 143 MMOL/L (136-145); TOTAL 25(OH) VITAMIN D 18.2 NG/ML (20.0-100.0); TRIGLYCERIDES LEVEL 76 MG/DL (<150)
[2025-04-07 16:26] LABS: ESTIMATED AVERAGE GLUCOSE 94.0 MG/DL (60-110)
[2025-04-07 16:45] LABS: HIV 1&2 SCREEN NEGATIVE (NEGATIVE)
[2025-04-07 16:53] LABS: HEPATITIS C VIRUS ABY INDEX < 0.02 INDEX (<0.8)
[2025-04-07 19:14] LABS: CREATININE, URINE 118.9 MG/DL; MALB URINE SIEMENS 3.0 MG/L
[2025-04-07 19:22] LABS: MAU/CREAT RATIO 0.0 MCG/MG (0.0-30.0)
== END ==
LOC: M LAB REF 15:13
PROVIDERS: ATTEND Pediatrics
DX: E66.9 Obesity, unspecified (principal); R03.0 Elevated blood-pressure reading, without diagnosis of hypertension; Z11.4 Encounter for screening for human immunodeficiency virus [HIV]; Z11.59 Encounter for screening for other viral diseases; D55.9 Anemia due to enzyme disorder, unspecified